=== PATIENT | female | born 2000 | race Caucasian/White ===

== ENCOUNTER 2020-07-10 03:31 | Emergency (ER) | payer MEDICAID ==
[~2020-07-10] VITALS: Ht 170.2 cm; Wt 77.1 kg
[2020-07-10 04:03] LABS: HEMATOCRIT 33.6 % (37.0-47.0); HEMOGLOBIN 11.2 gm/dL (12.0-15.0); MCH 27.5 pg (26.0-34.0); MCHC 33.3 g/dL (28.0-37.0); MCV 82.5 fL (80.0-100.0); RBC 4.07 mil/uL (4.20-5.00); RDW-CV 15.1 % (10.5-14.5)
[2020-07-10 04:13] LABS: URINE BILIRUBIN NEGATIVE (Negative); URINE BLOOD 3+ (Negative); URINE CLARITY CLEAR; URINE COLOR YELLOW; URINE GLUCOSE-RANDOM NEGATIVE (Negative); URINE KETONES NEGATIVE (Negative); URINE LEUKOCYTES 1+ (Negative); URINE NITRITE NEGATIVE (Negative); URINE PROTEIN NEGATIVE (Negative); URINE SPECIFIC GRAVITY 1.015 (1.005-1.030); URINE UROBILINOGEN 0.2 E.U./dl (0.2-1.0)
[2020-07-10 04:17] LABS: CALCIUM 8.5 mg/dL (8.5-10.1); CREATININE 0.8 mg/dL (0.6-1.3); POTASSIUM 3.1 mmol/L (3.5-5.1)
[2020-07-10 04:18] LABS: AMP/METHAMP Negative (Negative); BARBITURATES Negative (Negative); BENZODIAZEPINES Negative (Negative); COCAINE Negative (Negative); METHADONE Negative (Negative); OPIATES Negative (Negative); PCP Negative (Negative); THC POSITIVE (Negative)
[2020-07-10 04:21] LABS: ALBUMIN 3.2 g/dL (3.4-5.0); TOTAL BILIRUBIN 0.3 mg/dL (<0.1-1.0); TOTAL PROTEIN 6.6 g/dL (6.4-8.2)
[2020-07-10 04:29] LABS: CASTS None Seen /LPF (None Seen); SQUAMOUS 4-10 Moderate /LPF (0-3)
[2020-07-10 04:30] LABS: CRYSTALS None Seen /LPF (None Seen); URINE RBC >20 Many /HPF (0-2); URINE WBC 6-15 Few /HPF (0-5)
[2020-07-10 04:36] LABS: ACETAMINOPHEN < 2 ug/mL (10-30); ALCOHOL < 10 mg/dL (<10); SALICYLATE < 2.8 mg/dL (2.8-20.0)
[2020-07-10 05:19] VITALS: BP 122/90
--- NOTE | 2020-07-11 13:52 | EKG ---
[place] [address] ELECTROCARDIOGRAM REPORT Name: FRANK PAULSON BELLA Room: [facility]#: [id number] Admission: 07/10/20 Attend Phys: Discharge: 07/10/20 Date of : 00 Date of Service: 07/10/20 0344 Report #: [id number] THIS REPORT FOR: //name// [facility] ED Test Date: 2020-07-10 Test Time: 03:44:15 Pat Name: FRANK PAULSON Department: Room: Gender: F [employer] Supervisor: : [id number] Requested By: Jamila Garvin Order Number: [id number] MD: Ramesh Hickman Measurements Intervals [place] Rate: 99 P: 41 DE: 164 QRS: 36 QRSD: 90 T: 17 QT: 355 QTc: 456 Interpretive Statements Sinus rhythm Left atrial enlargement Low voltage, precordial leads No previous ECG available for comparison Electronically Signed On 07-11-2020 13:52:15 CDT by Ramesh Hickman [email or web address] <ELECTRONICALLY SIGNED> By: Ramesh Hickman MD, [facility] 07/11/20 1352 0344 0344 Ramesh Hickman MD, [facility] /EPI
== END 2020-07-10 05:20 | disposition home or self-care (01) ==
LOC: M.ERS 03:31
PROVIDERS: Personal Emergency Response Attendant
DX: F12.929 Cannabis use, unspecified with intoxication, unspecified (principal)

== ENCOUNTER 2021-02-21 17:22 | Emergency (ER) | payer MEDICAID ==
[~2021-02-21] VITALS: Ht 170.2 cm; Wt 82.1 kg
[2021-02-21 21:00] LABS: URINE BILIRUBIN NEGATIVE (Negative); URINE BLOOD NEGATIVE (Negative); URINE CLARITY CLEAR; URINE COLOR YELLOW; URINE GLUCOSE-RANDOM NEGATIVE (Negative); URINE KETONES NEGATIVE (Negative); URINE LEUKOCYTES-REFLEX NEGATIVE (Negative); URINE NITRITE-REFLEX NEGATIVE (Negative); URINE PROTEIN NEGATIVE (Negative); URINE SPECIFIC GRAVITY >= 1.030 (1.005-1.030); URINE UROBILINOGEN 0.2 E.U./dl (0.2-1.0)
[2021-02-21 21:42] VITALS: BP 112/78
== END 2021-02-21 21:42 | disposition home or self-care (01) ==
LOC: M.ERS 17:22
PROVIDERS: Nurse Practitioner Family
DX: K59.00 Constipation, unspecified (principal); R39.15 Urgency of urination